=== PATIENT | male | born 1960 | race Caucasian/White ===

== ENCOUNTER 2018-03-24 06:02 | Day surgery (SDC) | payer OTHER ==
[2018-03-23 14:46] LABS: BASOPHILS % (AUTO) 0.6 % (0.0-2.0); EOSINOPHILS # (AUTO) 0.2 K/uL (0-0.4); EOSINOPHILS % (AUTO) 4.3 % (0.0-4.0); HEMATOCRIT 40.9 % (36-52); HEMOGLOBIN 13.8 g/dL (12.0-18.0); LYMPHOCYTES # (AUTO) 1.3 K/uL (2.0-11.5); MEAN CORPUSCULAR HEMOGLOBIN 30 pg (27-31); MEAN CORPUSCULAR HGB CONC 34 g/dL (33-37); MEAN CORPUSCULAR VOLUME 89.9 fL (80-94); MONOCYTES # (AUTO) 0.7 K/uL (0.8-1.0); MONOCYTES % (AUTO) 12.6 % (1.7-9.3); NEUTROPHILS % (AUTO) 57.5 % (42.2-75.2); PLATELET COUNT (AUTO) 180 K/uL (140-450); RED BLOOD CELL COUNT(AUTO) 4.55 MIL/uL (4.20-6.10); RED CELL DISTRIBUTION WIDTH 12.7 % (11.6-13.7); WHITE BLOOD COUNT (AUTO) 5.3 K/uL (4.8-10.8)
[2018-03-23 15:18] LABS: ALBUMIN 3.7 g/dL (3.4-5.0); ANION GAP 12.2 (8-16); CARBON DIOXIDE 28.4 mmol/L (21-32); CREATININE 1.2 mg/dL (0.7-1.3); POTASSIUM 3.6 mmol/L (3.5-5.1); TOTAL BILIRUBIN 0.6 mg/dL (0.0-1.0)
[~2018-03-24] VITALS: Ht 177.8 cm; Wt 112.5 kg
[2018-03-24] MEDS ORDERED: OMEP20TC12 PO (06:46)
[2018-03-24] MEDS ORDERED: VAS10 PO (06:46)
[2018-03-24] MEDS ORDERED: PROPOFOL 200 MG/20 ML VIAL IV ONE (07:20)
[2018-03-24] MEDS ORDERED: fentaNYL 0.05 MG/ML VIAL ONE (07:25)
[2018-03-24] MEDS ORDERED: MIDAZOLAM 2 MG/2 ML VIAL ONE (07:25)
[2018-03-24] MEDS ORDERED: LACTATED RINGERS 1,000 ML IV SCH (07:30)
[2018-03-24] MEDS ORDERED: ONDANSETRON 4 MG/2 ML VIAL IVP PRN (07:30)
[2018-03-24] MEDS ORDERED: diphenhydrAMINE 50 MG/ML VIAL IVP PRN (07:30)
== END 2018-03-24 09:50 | disposition home or self-care (01) ==
LOC: MDS 06:02 → MMU 06:06 → MDS 09:50
PROVIDERS: ATTEND Internal Medicine Gastroenterology
DX: K22.70 Barrett's esophagus without dysplasia (principal); K44.9 Diaphragmatic hernia without obstruction or gangrene; K25.9 Gastric ulcer, unspecified as acute or chronic, without hemorrhage or perforation; E66.01 Morbid (severe) obesity due to excess calories; K21.9 Gastro-esophageal reflux disease without esophagitis; I10 Essential (primary) hypertension; Z68.36 Body mass index [BMI] 36.0-36.9, adult
CPT/HCPCS: 36415; 43239; 71045; 80053; 85025; 88305; 88313; 93005; J2250; J2704; J3010; J7030; J7120

== ENCOUNTER 2021-03-14 06:03 | Day surgery (SDC) | payer OTHER ==
[~2021-03-14] VITALS: Ht 177.8 cm; Wt 113.4 kg
[~2021-03-14 06:03] MED LIST: ENAL-197 PO; OMEP-278 PO
[2021-03-14 07:16] LABS: ANION GAP 16.3 (8-16); CARBON DIOXIDE 29.4 mmol/L (21-32); CREATININE 1.2 mg/dL (0.6-1.3); POTASSIUM 3.7 mmol/L (3.5-5.1)
[2021-03-14 07:25] LABS: ALBUMIN 3.9 g/dL (3.4-5.0)
[2021-03-14] MEDS ORDERED: PROPOFOL 200 MG/20 ML VIAL IV ONE (08:37)
== END 2021-03-14 10:30 | disposition home or self-care (01) ==
LOC: MDS 06:03 → MMU 06:17 → MDS 10:30
PROVIDERS: ATTEND Internal Medicine Gastroenterology
DX: K62.5 Hemorrhage of anus and rectum (principal); K44.9 Diaphragmatic hernia without obstruction or gangrene; K21.9 Gastro-esophageal reflux disease without esophagitis; K22.70 Barrett's esophagus without dysplasia; I10 Essential (primary) hypertension; E66.9 Obesity, unspecified; Z68.35 Body mass index [BMI] 35.0-35.9, adult; Z79.899 Other long term (current) drug therapy
CPT/HCPCS: 36415; 43235; 45378; 71045; 80053; 93005; J2704; J7030